=== PATIENT | female | born 1965 | race Caucasian/White ===

== ENCOUNTER → 2016-07-30 | Outpatient (CLI) | payer BC, OTHER ==
--- NOTE | 2016-07-31 11:18 | ECHOF ---
Referral Reason:Z01.818 pre chemo breast ca MEASUREMENTS -------- HEIGHT: 165.1 cm WEIGHT: 77.1 kg BP: IVSd: 1.3 cm (0.6 - 1.1) LVIDd: 3.3 cm (3.9 - 5.3) LVPWd: 1.2 cm (0.6 - 1.1) IVSs: 1.9 cm LVIDs: 2.2 cm LVPWs: 1.6 cm Ao Diam: 2.8 cm (2.0 - 3.7) AV Cusp: 2.3 cm (1.5 - 2.6) LA Diam: 2.9 cm (2.7 - 3.8) MV EXCURSION: 13.059 mm (> 18.000) MV EF SLOPE: 63 mm/s (70 - 150) EPSS: 0.3 cm MV E Waylon: 0.58 m/s MV DecT: 118 ms MV A Waylon: 0.65 m/s MV E/A Ratio: 0.88 RAP: 5.00 mmHg RVSP: 16.89 mmHg FINDINGS -------- Sinus rhythm. This was a technically good study. There is mild concentric left ventricular hypertrophy. Overall left ventricular systolic function is normal with, an EF between 55 - 60 %. The right ventricle is normal in size and function. The left atrium is normal in size. The right atrium is normal in size. The aortic valve is trileaflet, and appears structurally normal. No aortic stenosis or regurgitation. There is trace mitral regurgitation. Trace tricuspid regurgitation present. The right ventricular systolic pressure, as measured by Doppler, is 16.89mmHg. Pulmonic valve appears structurally normal. The aortic root, ascending aorta and aortic arch are normal. The pericardium is normal. CONCLUSIONS -------- 1. Sinus rhythm. 2. Trace tricuspid regurgitation present. 3. The right ventricular systolic pressure, as measured by Doppler, is 16.89mmHg. 4. Pulmonic valve appears structurally normal. 5. The aortic root, ascending aorta and aortic arch are normal. 6. The pericardium is normal. 7. This was a technically good study. 8. There is mild concentric left ventricular hypertrophy. 9. Overall left ventricular systolic function is normal with, an EF between 55 - 60 %. 10. The right ventricle is normal in size and function. 11. The left atrium is normal in size. 12. The right atrium is normal in size. 13. The aortic valve is trileaflet, and appears structurally normal. No aortic stenosis or regurgitation. 14. There is trace mitral regurgitation. TRANSFER TABLE OPERATOR HELPER: Bere Carmona RDCS
== END | disposition home or self-care (01) ==
LOC: RADECHMAIN 13:46
PROVIDERS: ATTEND Internal Medicine Hematology & Oncology
DX: Z01.818 Encounter for other preprocedural examination (principal); I08.1 Rheumatic disorders of both mitral and tricuspid valves
CPT/HCPCS: 93306

== ENCOUNTER 2016-07-31 11:57 | Day surgery (SDC) | payer BC, OTHER ==
[2016-07-26 11:49] VITALS: BMI 28.3
[~2016-07-31 11:57] MED LIST: DEXAMETHASONE SOD PHOSPHATE 10 MG/ML 1 ML VIAL IV ONE; HEPARIN SODIUM,PORCINE 5,000 UNIT/ML 1 ML VIAL SQ ONE; HYDROmorphone 1 MG/ML 1 ML SYRINGE IVP PRN; LACTATED RINGERS 1,000 ML IV SCH; ceFAZolin 2 GM in SODIUM CHLORIDE 0.9% 100 ML IVPB ONE
[2016-07-31] MEDS ORDERED: LIDOCAINE 1% 20 ML VIAL (10MG/ML) FOR IV START INTRADERMA ONE (13:38)
[2016-07-31] MEDS ORDERED: ONDANSETRON 4 MG/2 ML VIAL IVP ONE (13:39)
[2016-07-31 13:44] LABS: Glucose,Whole Blood 101 mg/dL (75-99)
[2016-07-31] MEDS ORDERED: MIDAZOLAM 2 MG/2 ML VIAL IVP ONE (13:46)
[2016-07-31] MEDS ORDERED: IOHEXOL 180 MG/ML 1 ML ML MISCELLANE ONE (13:53)
[2016-07-31] MEDS ORDERED: HEPARIN SODIUM,PORCINE 100 UNIT/ML 5 ML VIAL IV ONE (13:53)
[2016-07-31] MEDS ORDERED: BUPIVACAIN-EPI 0.25%-1:200,000 30 ML VIAL SQ ONE ×2 (13:53)
--- NOTE | 2016-07-31 15:04 | P.GSHP ---
History of Present Illness H&P Date: 07/31/16 Chief Complaint: History of breast cancer This is a 50-year-old female who presents today for Port-A-Cath insertion. Patient was recently diagnosed breast cancer. Patient will be undergoing chemotherapy. Past Medical History Past Medical History: Cancer, Diabetes Mellitus, GERD/Reflux, Hyperlipidemia, Hypertension, Sleep Apnea/CPAP/BIPAP Additional Past Medical History / Comment(s): RIGHT BREAST CANCER, CPAP History of Any Multi-Drug Resistant Organisms: None Reported Past Surgical History: Breast Surgery, Cholecystectomy Additional Past Surgical History / Comment(s): R breast Bx X2, RIGHT MASTECTOMY , Past Anesthesia/Blood Transfusion Reactions: Postoperative Nausea & Vomiting ( PONV) Past Psychological History: Anxiety Smoking Status: Never smoker Past Alcohol Use History: Rare Past Drug Use History: None Reported - Past Family History Sister(s) Family Medical History: Cancer Mother Family Medical History: Coronary Artery Disease (CAD), Deep Vein Thrombosis (DVT ) Father Family Medical History: CVA/TIA Medications and Allergies Home Medications Medication Instructions Recorded Confirmed Type ALPRAZolam [Xanax] 0.5 mg PO BID PRN 07/27/15 07/26/16 History Atorvastatin [Lipitor] 40 mg PO HS 07/27/15 07/26/16 History Omeprazole [PriLOSEC] 40 mg PO HS 07/27/15 07/26/16 History Ramipril 2.5 mg PO HS 07/27/15 07/26/16 History metFORMIN HCL ER [Glucophage Xr] 1,000 mg PO BID 07/04/16 07/26/16 History Allergies Allergy/AdvReac Type Severity Reaction Status Date / Time No Known Allergies Allergy Verified 07/31/16 12:46 Surgical - Exam Vital Signs Temp Pulse Resp BP Pulse Ox 97.5 F L 93 16 145/71 100 07/31/16 12:48 07/31/16 12:48 07/31/16 12:48 07/31/16 12:48 07/31/16 12:48 - General well developed, no distress - Eyes PERRL - ENT normal pinna - Neck no masses - Respiratory normal expansion - Cardiovascular Rhythm: regular - Abdomen Abdomen: soft, non tender Results - Labs Abnormal Lab Results - Last 24 Hours (Table) 07/31/16 Range/Units 13:33 POC Glucose (mg/dL) 101 H (75-99) mg/dL Assessment and Plan Plan: History of breast cancer. We'll perform Port-A-Cath insertion.
[2016-07-31] MEDS ORDERED: LIDOCAINE 1% INJ 10MG/ML (20 ML MDV) ONE (15:06)
[2016-07-31] MEDS ORDERED: fentaNYL (PF) 50 MCG/ML 2 ML AMP ONE (15:06)
[2016-07-31] MEDS ORDERED: MIDAZOLAM 2 MG/2 ML VIAL ONE (15:06)
[2016-07-31] MEDS ORDERED: KETAMINE 10 MG/ML 20 ML VIAL ONE (15:06)
[2016-07-31] MEDS ORDERED: PROPOFOL 10 MG/ML 20 ML VIAL IV ONE (15:06)
[2016-07-31 16:00] VITALS: TEMP 97.9
--- NOTE | 2016-07-31 16:09 | FL ---
Fluoroscopy INDICATION: Port-A-Cath insertion 2 seconds fluoroscopy time was provided for procedure. One fluoroscopic spot images presented.
--- NOTE | 2016-07-31 16:10 | P.OP ---
Date of Procedure: 07/31/16 Preoperative Diagnosis: Breast cancer Postoperative Diagnosis: Breast cancer Procedure(s) Performed: Insertion of left subclavian Port-A-Cath Anesthesia: MAC Surgeon: Basilio Llamas Estimated Blood Loss (ml): 5 Pathology: none sent Condition: stable Disposition: PACU Description of Procedure: PROCEDURE: The patient was placed on the operating table in the supine position. She received MAC anesthetic. The left chest was prepped and draped in the usual sterile fashion. The skin underneath the right clavicle was anesthetized with 1% Xylocaine and using Seldinger technique, the right subclavian vein was cannulized. The wire was placed through the needle and positioned under fluoroscopy. Next, the needle was removed and the port site was anesthetized with 1% Xylocaine. Skin was incised with #15 blade and port pocket was made using blunt and sharp dissection. Following this the catheter was attached to the sport and the port was flushed. The port was positioned into the pocket site and was secured with 3-0 Vicryl suture. The catheter was then brought out through the wire site and then the dilator sheath was placed over the wire and the dilator and the wire were removed. The catheter was placed through the sheath and the sheath was removed. The port was flushed with hep-lock solution. Skin was closed with interrupted 3-0 Vicryl sutures. Steri-Strips were applied. The patient tolerated the procedure well. The patient was sent to recovery room for chest x-ray after the procedure.
--- NOTE | 2016-07-31 16:27 | XR ---
EXAMINATION TYPE: XR chest 1V DATE OF EXAM: 07/31/2016 4:20 PM COMPARISON: NONE INDICATION: Post Port-A-Cath insertion TECHNIQUE: Single frontal view of the chest is obtained. FINDINGS: The heart size is normal. The pulmonary vasculature is normal. The lungs are clear. Underexpanded appears to be present on the right. A left-sided central venous catheter is in place th e tip in the superior vena cava region. A kink near the port access point cannot be excluded. IMPRESSION: 1. A kink near the port access is not excluded. Tip of the catheter is in the region of the superior vena cava.
[2016-07-31 16:31] VITALS: BP 139/70; PULSE 88; RESP 16
== END 2016-07-31 17:10 | disposition home or self-care (01) ==
LOC: OR 11:57
PROVIDERS: ATTEND Surgery
DX: Z45.2 Encounter for adjustment and management of vascular access device (principal); C50.911 Malignant neoplasm of unspecified site of right female breast; K21.9 Gastro-esophageal reflux disease without esophagitis; E11.9 Type 2 diabetes mellitus without complications; E78.5 Hyperlipidemia, unspecified; F41.9 Anxiety disorder, unspecified; G47.30 Sleep apnea, unspecified; Z99.89 Dependence on other enabling machines and devices; Z79.84 Long term (current) use of oral hypoglycemic drugs; Z79.899 Other long term (current) drug therapy; Z90.11 Acquired absence of right breast and nipple
CPT/HCPCS: 36561; 81025; 77001; 71010; C1788; J2250; J1644; J1642; J1100; Q9965; J0690; J2405; J2001; J3010; J2704; 99152; 99153

== ENCOUNTER 2016-08-09 10:30 | Day surgery (SDC) | payer BC, OTHER ==
[2016-08-09 11:10] VITALS: RESP 18; TEMP 98
[2016-08-09] MEDS ORDERED: IODIXANOL 320 MG/ML 100 ML IV ONE (13:11)
[2016-08-09 13:47] VITALS: BP 141/72; PULSE 95
[2016-08-09 15:59] LABS: Glucose,Whole Blood 140 mg/dL (75-99)
--- NOTE | 2016-08-09 16:52 | IR ---
Port-A-Cath check HISTORY: Unable to aspirate Port-A-Cath, malfunctioning Port-A-Cath Evaluation of the Port-A-Cath under real-time fluoroscopy was undertaken Gentle hand injection of contrast material approximately 5 cc of Visipaque 320 was undertaken under r eal-time fluoroscopy. Normal filling of the port is present, there is no leak from the catheter, catheter tip is adjacent t o the lateral wall of the superior vena cava. Aspiration is slow from the catheter. Catheter was flushed with heparin solution. No immediate complication. Patient remained in stable co ndition. IMPRESSION: Catheter placement as described. Distal tip abuts the superior vena cava wall.
== END 2016-08-09 13:15 | disposition home or self-care (01) ==
LOC: CATHCVL 10:30
PROVIDERS: ATTEND Radiology Diagnostic Radiology
DX: T82.514A Breakdown (mechanical) of infusion catheter, initial encounter (principal); Y71.1 Therapeutic (nonsurgical) and rehabilitative cardiovascular devices associated with adverse incidents; Y92.9 Unspecified place or not applicable; C77.3 Secondary and unspecified malignant neoplasm of axilla and upper limb lymph nodes; C50.411 Malignant neoplasm of upper-outer quadrant of right female breast; Z79.84 Long term (current) use of oral hypoglycemic drugs; Z79.899 Other long term (current) drug therapy; Z17.0 Estrogen receptor positive status [ER+]
CPT/HCPCS: 36598; 81025; Q9967

== ENCOUNTER → 2017-03-12 | Outpatient (CLI) | payer BC, OTHER ==
--- NOTE | 2017-03-13 07:48 | XR ---
EXAMINATION TYPE: XR lumbar spine 2 or 3V DATE OF EXAM: 03/12/2017 CLINICAL HISTORY: pain TECHNIQUE: Three views of the lumbar spine are submitted. COMPARISON: None. FINDINGS: There are 5 lumbar type vertebral bodies identified. The lumbar spine shows satisfactory alignment w ithout evidence of acute fracture or dislocation. Vertebral body heights are within normal limits. Mild degenerative disc space narrowing and spondylosis. The overlying soft tissue appears unremarkab le. IMPRESSION: No acute fracture or dislocation is seen in the lumbar spine. ICD 10 NO FRACTURE, INITIAL EVALUATION
--- NOTE | 2017-03-13 07:50 | XR ---
EXAMINATION TYPE: XR Hip Bilateral and AP pelvis DATE OF EXAM: 03/12/2017 CLINICAL HISTORY: Pelvic and right hip pain. TECHNIQUE: A single AP view of the pelvis is obtained. Two views of the bilateral hips are obtained. COMPARISON: None. FINDINGS: There is no acute fracture/dislocation evident in the pelvis. The hip and sacroiliac joints appear s ymmetric and unremarkable. The overlying soft tissue appears unremarkable.Two views of bilateral hip show no acute fracture or dislocation. The overlying soft tissue is unremarkable. IMPRESSION: There is no acute fracture or dislocation in the pelvis or bilateral hips
--- NOTE | 2017-03-13 08:19 | US ---
EXAMINATION TYPE: US venous doppler duplex LE RT DATE OF EXAM: 03/12/2017 5:36 PM COMPARISON: NONE CLINICAL HISTORY: M79.661 Pain in right lower leg. Right leg cramping SIDE PERFORMED: Right TECHNIQUE: The lower extremity deep venous system is examined utilizing real time linear array sonog morris with graded compression, doppler sonography and color-flow sonography. VESSELS IMAGED: External Iliac Vein (EIV) Common Femoral Vein Deep Femoral Vein Greater Saphenous Vein * Femoral Vein Popliteal Vein Small Saphenous Vein * Proximal Calf Veins (* superficial vessels) Grayscale, color doppler, spectral doppler imaging performed of the deep veins of the lower extremity . There is normal flow, compressibility, vascular waveforms. Right Leg: Negative for DVT IMPRESSION: No evidence of DVT right leg
== END | disposition home or self-care (01) ==
LOC: RADUSMAIN 16:55
PROVIDERS: ATTEND Internal Medicine Hematology & Oncology
DX: M79.661 Pain in right lower leg (principal); C50.419 Malignant neoplasm of upper-outer quadrant of unspecified female breast; Z17.0 Estrogen receptor positive status [ER+]
CPT/HCPCS: 72100; 73521

== ENCOUNTER 2017-06-04 06:51 | Day surgery (SDC) | payer BC, OTHER ==
[2017-05-30 15:10] VITALS: BMI 26.6
[~2017-06-04 06:51] MED LIST changes: +HYDROmorphone 0.5 MG/0.5 ML SYRINGE IVP PRN; -HYDROmorphone 1 MG/ML 1 ML SYRINGE IVP PRN; +LIDOCAINE 1% 20 ML VIAL (10MG/ML) FOR IV START INTRADERMA PRN; +MIDAZOLAM 2 MG/2 ML VIAL IV PRN; +ONDANSETRON 4 MG/2 ML VIAL IVP ONE; +SCOPOLAMINE 1.5MG/72HR PATCH TRANSDERM ONE; -ceFAZolin 2 GM in SODIUM CHLORIDE 0.9% 100 ML IVPB ONE; +ceFAZolin IN SWFI 2 GM/20 ML SYRINGE IVP ONE
[2017-06-04 07:37] LABS: Glucose,Whole Blood 141 mg/dL (75-99)
--- NOTE | 2017-06-04 08:07 | P.GSHP ---
History of Present Illness H&P Date: 06/04/17 Chief Complaint: history of right breast cancer This is a 51-year-old female who has a previous history of right breast cancer. Patient presents today for left breast simple mastectomy with immediate reconstruction with tissue implant acute coordinator by Dr. Villasenor. Past Medical History Past Medical History: Cancer, Diabetes Mellitus, GERD/Reflux, Hyperlipidemia, Hypertension, Sleep Apnea/CPAP/BIPAP Additional Past Medical History / Comment(s): RIGHT BREAST CANCER, LAST CHEMO , LAST RADIATION 01/29/17, CPAP. History of Any Multi-Drug Resistant Organisms: None Reported Past Surgical History: Breast Surgery, Cholecystectomy Additional Past Surgical History / Comment(s): R breast Bx X2, RIGHT MASTECTOMY , port-a-cath insertion. Past Anesthesia/Blood Transfusion Reactions: Postoperative Nausea & Vomiting ( PONV) Past Psychological History: Anxiety Smoking Status: Never smoker Past Alcohol Use History: Rare Past Drug Use History: None Reported - Past Family History Sister(s) Family Medical History: Cancer Mother Family Medical History: Coronary Artery Disease (CAD), Deep Vein Thrombosis (DVT ) Father Family Medical History: CVA/TIA Medications and Allergies Home Medications Medication Instructions Recorded Confirmed Type ALPRAZolam [Xanax] 0.5 mg PO BID PRN 07/27/15 06/04/17 History Atorvastatin [Lipitor] 40 mg PO HS 07/27/15 06/04/17 History Omeprazole [PriLOSEC] 20 mg PO HS 07/27/15 06/04/17 History Ramipril 2.5 mg PO HS 07/27/15 06/04/17 History metFORMIN HCL ER [Glucophage Xr] 1,000 mg PO BID 07/04/16 06/04/17 History Tamoxifen Citrate 20 mg PO HS 05/30/17 06/04/17 History Allergies Allergy/AdvReac Type Severity Reaction Status Date / Time No Known Allergies Allergy Verified 05/30/17 14:47 Surgical - Exam Vital Signs Temp Pulse Resp BP Pulse Ox 97.6 F 85 16 140/92 99 06/04/17 07:16 06/04/17 07:16 06/04/17 07:16 06/04/17 07:16 06/04/17 07:16 - General well developed, no distress - Eyes PERRL - ENT normal pinna - Neck no masses - Respiratory normal expansion - Cardiovascular Rhythm: regular - Abdomen Abdomen: soft, non tender High riding right chest wall acute coordinator. Left breast has no evidence of any masses. There is no cervical or axillary lymphadenopathy. Results - Labs Abnormal Lab Results - Last 24 Hours (Table) 06/04/17 Range/Units 07:34 POC Glucose (mg/dL) 141 H (75-99) mg/dL Assessment and Plan Assessment: 3 of right breast cancer. We'll perform left breast simple mastectomy with immediate reconstruction
[2017-06-04] MEDS ORDERED: KETAMINE 10 MG/ML 20 ML VIAL ONE (08:28)
[2017-06-04] MEDS ORDERED: PROPOFOL 10 MG/ML 20 ML VIAL IV ONE (08:28)
[2017-06-04] MEDS ORDERED: fentaNYL (PF) 50 MCG/ML 2 ML AMP ONE (08:28)
[2017-06-04] MEDS ORDERED: MIDAZOLAM 2 MG/2 ML VIAL ONE (08:28)
[2017-06-04] MEDS ORDERED: ePHEDrine SULFATE/0.9% NACL/PF 50 MG/5 ML SYRINGE IV ONE (08:28)
[2017-06-04] MEDS ORDERED: HYDROmorphone (PF) 1 MG/ML ONE (08:28)
[2017-06-04] MEDS ORDERED: SUCCINYLCHOLINE CHLORIDE 100 MG/5 ML SYR IV ONE (08:28)
[2017-06-04] MEDS ORDERED: LIDOCAINE 1% INJ 10MG/ML (20 ML MDV) ONE (08:28)
[2017-06-04] MEDS ORDERED: PHENYLEPHRINE-0.9% NACL SYG 1 MG/10 ML SYRINGE ONE (08:28)
--- NOTE | 2017-06-04 10:21 | P.OP ---
Date of Procedure: 06/04/17 Preoperative Diagnosis: History of right breast cancer Postoperative Diagnosis: History of right breast cancer Procedure(s) Performed: left simple mastectomy Anesthesia: CHERELLE Surgeon: Basilio Llamas Estimated Blood Loss (ml): 30 Pathology: other (Left breast) Condition: stable Disposition: PACU Description of Procedure: Patient's placed on the operative table in supine position. She had been previously marked by Dr. Villasenor in the preoperative hold area. The patient received general anesthesia. Her breast was prepped and draped usual sterile fashion. A circular incision was made around the nipple complex. And then using left cautery and the Harmonic scissors the simple mastectomy was performed. The mastectomy flaps were elevated to the level of the clavicle early. The sternum medially, the inframammary place inferiorly and the axilla laterally. The breast was then removed from the chest wall using the Harmonic scissors. Several small perforating vessels were divided. The specimen was sent to pathology. Specimen was labeled with a long suture superiorly and the short suture medially. The wound was packed. There is no bleeding seen. Dr. Villasenor then completed the breast reconstruction. A skin incision made at the port site and then using blunt and sharp dissection with cautery the Port-A-Cath was withdrawn from the left chest wall. The skin was closed interrupted 3-0 Monocryl suture. Dermabond was applied. Please see hospital for Dr. Villasenor's description of this procedure.
[2017-06-04] MEDS ORDERED: LACTATED RINGERS 1,000 ML IV ONE (10:31)
[2017-06-04 11:23] VITALS: RESP 16; TEMP 97
[2017-06-04 11:43] LABS: Glucose,Whole Blood 181 mg/dL (75-99)
[2017-06-04] MEDS: HYDROmorphone 1 MG/ML 1 ML SYRINGE IVP PRN ×4 (11:47→12:19)
[2017-06-04] MEDS ORDERED: HYDROcodone/APAP 7.5-325MG 1 EACH TAB PO ONE (12:58)
[2017-06-04 14:19] VITALS: PULSE 90
[2017-06-04 14:20] VITALS: BP 138/72
--- NOTE | 2017-06-04 17:18 | OP ---
OPERATIVE REPORT DATE OF SURGERY: June 04, 2017. SURGEON: Ward Calloway M.D. PREOPERATIVE DIAGNOSES: 1. Acquired loss left breast. 2. Status post left mastectomy. POSTOPERATIVE DIAGNOSES: 1. Acquired loss left breast. 2. Status post left mastectomy. 3. Personal history of breast cancer. OPERATIVE PROCEDURES: 1. Immediate reconstruction of left breast following mastectomy with insertion of tissue puzzle assembler. Subsequent outpatient expansion. 2. Implantation of reconstructive graft, flex HD, 220 square cm, for left breast reconstruction. OPERATIVE INDICATION: The patient is a 51-year-old female, who is undergoing treatment for invasive right breast cancer with neoadjuvant therapy right mastectomy with immediate postoperative reconstruction and subsequent radiation therapy. She is returning to surgery today. She has elected to proceed with left simple mastectomy for prophylactic treatment of breast cancer. She was referred to my care for reconstructive purposes by general surgeon, Dr. Llamas who will perform left simple mastectomy. Following this procedure tissue puzzle assembler style reconstruction initiated. Patient understands potential risks and complications related to surgery including hematoma seroma wound infection, wound healing problems and asymmetry among others. She has requested I perform the surgery. OPERATIVE PROCEDURE SUMMARY: The patient was seen in the presurgical area. Markings were made. She was transported to the operating room, where she was placed in supine position. General endotracheal anesthesia was established. She was prepped and draped in usual fashion. Dr. Llamas proceeded with left simple mastectomy. At the completion of the procedure I entered the room. Again the patient is under general tracheal anesthesia in the supine position. Sponge and needle counts from prior procedure were correct. I initiated left breast reconstruction. The pectoralis major muscle was identified where it joined the chest wall laterally. Loose areolar connective tissue divided with cautery allowing entry into the potential plane between the pectoralis major minor muscles which was bluntly developed followed by use of cauterization to divide medial attachment fibers of the pectoralis major muscle to the rims without sternal attachments and all inferior attachments released. Additional muscle groups were required for coverage of the puzzle assembler. Inferior medial rectus abdominal muscle fascia inferiorly laterally external abdominal oblique muscle fascia and laterally serratus anterior muscle fascia were now all elevated with cauterization through this incision was sufficient size submuscular region was completed. Dissection stopped. Irrigation was performed. Hemostasis was excellent. The cavity was sized. A tissue puzzle assembler now opened on the field. After changing gloves the tissue expanders from the [employer] style reference number [id number] , serial number [id number]. Device was only handled by the surgeon. All air was extracted. 50 mL 0.9 normal saline instilled into the reconstructive plane. The muscle flap tissue was attenuated in an area with significant amount and could not be approximated directly over the puzzle assembler without significant tension. Therefore the flex HD which had been used on the patient's prior reconstructions was opened on the field. The flex HD measured 11 x 20 square cm was opened on the field. Irrigated. The flex HD was inserted in the reconstructive plane, deep to the muscle flap tissue but superficial to the puzzle assembler. It was only in the inferior sling technique and inset the muscle flap tissue using interrupted short running 3-0 Vicryl sutures. Complete coverage was obtained. Additional saline was now added to the puzzle assembler until appropriate tension was distributed between the muscle flap and flex HD. Final volume of the puzzle assembler was 300 mL. A 19 round Robert channel drain was inserted into the surgical field. Placed over the muscle flap and deep to the skin flaps. Drains brought out through a separate stab incision. The left anterior lateral chest wall and suture placed with 2-0 Prolene. The drain was connected to close bulb suction and also sutured in place with 2-0 Prolene. The mastectomy wound site was now closed. Circumareolar approach had been used. Therefore a deep dermal circumareolar pursestring technique was used with 2-0 Prolene followed by final approximation of the dermis using interrupted 4-0 Monocryl. The patient's Mediport on the left side had been removed by Dr. Llamas. This opening was now closed approximating the deep dermis using inverted interrupted 4-0 Monocryl and the closure of the skin with subcuticular 4-0 Monocryl followed by placement of Steri-Strips and a bandage was then placed over the mastectomy site using 4x4s ABD pad secured with paper tape. The patient's drain was patent. The patient was then awakened from her anesthetic, extubated, and transferred to the recovery room in good condition and stable vital signs. There were no complications. ESTIMATED BLOOD LOSS: Was 100 mL. MMODL / IJN: [id number] /
== END 2017-06-04 14:41 | disposition home or self-care (01) ==
LOC: OR 06:51
PROVIDERS: ATTEND Surgery
DX: C50.911 Malignant neoplasm of unspecified site of right female breast (principal); E11.9 Type 2 diabetes mellitus without complications; K21.9 Gastro-esophageal reflux disease without esophagitis; E78.5 Hyperlipidemia, unspecified; I10 Essential (primary) hypertension; G47.30 Sleep apnea, unspecified; Z99.89 Dependence on other enabling machines and devices; Z82.49 Family history of ischemic heart disease and other diseases of the circulatory system; Z82.3 Family history of stroke; Z79.84 Long term (current) use of oral hypoglycemic drugs; Z79.810 Long term (current) use of selective estrogen receptor modulators (SERMs); Z79.899 Other long term (current) drug therapy
CPT/HCPCS: 19303; 19357; 36589; J2250; J1644; J1100; J0690; J2405; J2001; J3010; J1170; J2370; J0330; J2704; 81025; 88307

== ENCOUNTER → 2017-09-09 | Outpatient (CLI) | payer BC ==
[2017-09-09 18:53] LABS: Blood Urea Nitrogen 10 mg/dL (7-17)
--- NOTE | 2017-09-10 06:57 | CT ---
EXAMINATION TYPE: CT brain wo/w con DATE OF EXAM: 09/09/2017 COMPARISON: NONE HISTORY: headaches on and off for 4 months. History of breast cancer. CT DLP: 2108.4 mGycm Automated exposure control for dose reduction was used. CONTRAST: CT scan of the head is performed without and with IV Contrast, patient injected with 100 mL of Omnipa que 300. FINDINGS: Noncontrast images show no acute intracranial hemorrhage or midline shift. Marie-white matter differen tiation is maintained. The ventricles and sulci are within normal limits in size. Post contrast imag es show no suspicious enhancing intraparenchymal mass. The globes are intact and the visualized sinus es are clear. IMPRESSION: No significant finding is seen to account for patient's symptoms.
== END | disposition home or self-care (01) ==
LOC: RADCTMAIN 18:10
PROVIDERS: ATTEND Internal Medicine Hematology & Oncology
DX: R51 Headache (principal); C50.419 Malignant neoplasm of upper-outer quadrant of unspecified female breast
CPT/HCPCS: 82565; 84520; 70470; 36415; Q9967

== ENCOUNTER 2017-10-28 10:31 | Day surgery (SDC) | payer BC ==
[2017-10-21 09:24] VITALS: BMI 26.6
[~2017-10-28 10:31] MED LIST changes: -HEPARIN SODIUM,PORCINE 5,000 UNIT/ML 1 ML VIAL SQ ONE; -HYDROmorphone 0.5 MG/0.5 ML SYRINGE IVP PRN; -LIDOCAINE 1% 20 ML VIAL (10MG/ML) FOR IV START INTRADERMA PRN; +MORPHINE SULFATE 4MG/4ML SYRG IV PRN; -SCOPOLAMINE 1.5MG/72HR PATCH TRANSDERM ONE
[2017-10-28] MEDS ORDERED: LIDOCAINE 1% 20 ML VIAL (10MG/ML) FOR IV START INTRADERMA ONE (11:35)
[2017-10-28 11:53] LABS: Glucose,Whole Blood 110 mg/dL (75-99)
[2017-10-28] MEDS ORDERED: PROPOFOL 10 MG/ML 20 ML VIAL IV ONE (12:17)
[2017-10-28] MEDS ORDERED: MORPHINE SULFATE 10 MG/ML SYRINGE ONE (12:17)
[2017-10-28] MEDS ORDERED: ROCURONIUM BROMIDE 10 MG/ML 10 ML VIAL IV ONE (12:17)
[2017-10-28] MEDS ORDERED: GLYCOPYRROLATE 0.2 MG/ML 2 ML VIAL ONE (12:17)
[2017-10-28] MEDS ORDERED: fentaNYL (PF) 50 MCG/ML 2 ML AMP ONE (12:17)
[2017-10-28] MEDS ORDERED: LIDOCAINE 1% INJ 10MG/ML (20 ML MDV) ONE (12:17)
[2017-10-28] MEDS ORDERED: SUCCINYLCHOLINE CHLORIDE 100 MG/5 ML SYR IV ONE (12:17)
[2017-10-28] MEDS ORDERED: NEOSTIGMINE 1 MG/ML 10 ML VIAL ONE (12:17)
[2017-10-28] MEDS ORDERED: MIDAZOLAM 2 MG/2 ML VIAL ONE (12:17)
[2017-10-28] MEDS ORDERED: LACTATED RINGERS 1,000 ML IV ONE (14:47)
[2017-10-28 15:08] LABS: Glucose,Whole Blood 140 mg/dL (75-99)
[2017-10-28 15:16] VITALS: TEMP 96.8
[2017-10-28 15:18] VITALS: RESP 16
[2017-10-28] MEDS: fentaNYL (PF) 50 MCG/ML 2 ML AMP IV ONE ×2 (15:24→15:44)
[2017-10-28] MEDS ORDERED: HYDROcodone/APAP 7.5-325MG 1 EACH TAB PO ONE (16:09)
[2017-10-28 17:00] VITALS: BP 139/69; PULSE 72
--- NOTE | 2017-10-28 22:22 | OP ---
OPERATIVE REPORT DATE OF SURGERY: October 28, 2017 PREOPERATIVE DIAGNOSES:: 1. Acquired loss, right and left breast. 2. Personal history of breast cancer. 3. Acquired loss of right breast inframammary fold. 4. Acquired deformities of the right left reconstructed breast. POSTOPERATIVE DIAGNOSES:: 1. Acquired loss of right left breast. 2. Personal history of breast cancer. 3. Acquired loss, right inframammary fold. 4. Acquired deformity of right and left reconstructed breast. OPERATION:: 1. Replace left breast tissue child welfare assistant with silicone breast implant for left breast reconstruction. 2. Revision, left reconstructed breast. 3. Replace right breast tissue child welfare assistant with silicone breast implant for right breast reconstruction. 4. Revision, right reconstructed breast. 5. Reconstruction of right breast inframammary fold via local advancement flap, 66.5 cm2. 6. Implantation of reconstructive graft, FlexHD for right breast reconstruction, 220 cm2. ESTIMATED BLOOD LOSS:: SPECIMEN TAKEN:: SURGEON: Dr. Ward Calloway. OPERATIVE INDICATIONS: The patient is a 52-year-old female who has undergone initially right mastectomy and then later delayed left mastectomy. She did require radiation treatment in addition to chemotherapy. The radiation was required for the right side at the time of her 1st mastectomy and then 2nd mastectomy, the patient elected to proceed with reconstruction via tissue child welfare assistant technique and the separate procedures were accomplished. She completed expansion process which some expansion was required to complete after finishing radiation therapy and she did progress well with the expansion despite the radiation treatments, although there had been significant skin envelope changes involving the right breast which was radiated. The patient's right inframammary fold was effaced and the lower pole is significantly diminished compared to the patient's left side. There are significant contour irregularities, more pronounced on the right than left, but are present on both sides. The patient is here today for her 2nd stage of reconstruction of the breast with removal of expanders, placement of the implants, revision of the breast, reconstruction of the right inframammary fold and likely placement of a reconstructive graft. She understands additional surgery may be required and also that there are potential risks and complications related to surgery including, but not limited to wound infections, wound healing problems, seroma, hematoma, asymmetrical result. She has requested I perform the surgery. NARRATIVE:: The patient is seen, presurgical area markings made, procedure reviewed. All questions answered. She was transported to the operating room, where she was placed in supine position following induction general endotracheal anesthesia, the patient was prepped and draped in usual fashion. The procedure initiated on the patient's left side. Transverse diagram was drawn over the mastectomy scar. Incision made, dividing skin in full-thickness fashion with a 10 blade scalpel followed by the use of cauterization to divide subcutaneous tissue. Skin and subcutaneous tissue flaps were then elevated off the muscle flap tissue. Extensive dissection was required to release contour with irregularities caused by the prior procedures and healing processes. Once this was completed, a transverse incision was made through the muscle flap tissue in the lower 1/3 of the reconstructive site, exposing the child welfare assistant. The child welfare assistant was removed intact. The expansion cavity appeared normal. Some serous fluid, no exudates, no granulation tissue. A complete capsulotomy incision was made where the capsule joined the chest wall and then multiple cruciate incisions made through the capsular structure, releasing the tightness of the structure, but not through the muscle. The site was irrigated, hemostasis maintained with cauterization. This was packed open with moistened laparotomy pads. Attention was turned toward the right side. Again, transverse diagram for incisions drawn, encompassing the patient's prior mastectomy scar site. Incision made with a 10 blade scalpel, dividing skin in full-thickness fashion followed by use of cauterization throughout subcutaneous tissue and then cautery was used to elevate skin and subcutaneous tissue flaps off the muscle flap tissue. Extensive dissection was required for this to release contour irregularities and abnormalities caused by her prior surgeries and expansion. With this completed, incision was then made through the muscle flap tissue, exposing the child welfare assistant. This incision was offset from the skin incision over the lower 1/3 of the child welfare assistant. The child welfare assistant was exposed and removed intact. The expansion cavity appeared normal. A small amount of serous fluid, no granulation tissue, no exudates. The expansion capsule on the right side had significant hypertrophic characteristics and required division. First, a complete capsulotomy incision was made where the capsule joined the chest wall and then multiple cruciate incisions through the capsule. Hemostasis was maintained with cautery with this portion of procedure. This released significant tightness of the capsule. The patient's right inframammary fold was completely lost due to the surgery expansion and radiation treatments. Skin and subcutaneous tissue flap was now elevated through the lower capsulotomy incision. The flap was large, measuring 19 x 3.5 cm2. It included skin and subcutaneous tissue. Once the flap was elevated, the cautery was advanced in a cephalad fashion and secured to the chest wall rib periosteal tissue in several places and scar tissue and others using several discrete interrupted 0 Vicryl sutures. The crease was in the equal level to the patient's left side. The left crease had a small amount of effacement, was overall intact and did not require this maneuver. With the right crease reconstructed at this point, the field was re-irrigated. Hemostasis was excellent. Temporary implant sizers were opened on the field. Ultimately, sizers placed were different on each side. On the right side, the 650 mL sizer appeared optimal. The left side, as there was a greater amount of tissue and no radiation performed, slightly smaller sizer, 600 mL appeared to be optimal. These were evaluated with the patient in seated up position and the incisions temporarily closed with alirio. She was returned to supine position, temporary staple closure was removed. Both temporary implant sizers removed both cavities irrigated. Hemostasis was excellent. The right-sided implant was now opened. This implant measured 615 mL, was from the [employer], high profile implant, reference #[id number], serial #[id number]. Gloves had been changed prior to opening the device and the device was only handled by surgeon after irrigating with saline. It was inserted in reconstructive cavity. It was not possible to approximate muscle flap tissue over the implant. FlexHD reconstructive graft was opened on the field, measuring 11 x 20 cm2. The graft was rinsed several times with room temperature saline. The graft was then oriented under direct vision and with the implant temporarily removed, the graft was sutured just above the inframammary fold reconstruction site using several interrupted 3-0 Vicryl. The implant was replaced in the cavity, the FlexHD advanced over the lower pole of the implant and placed deep to the muscle flap tissue and the muscle flap tissue advanced over the FlexHD. The muscle flap tissue and FlexHD were then inset to each other using interrupted 3-0 Vicryl, providing complete coverage to the implant. Irrigation was performed. Hemostasis remained excellent. The deep dermal layer of the skin incision was now closed using inverted interrupted 4-0 Monocryl. Attention was turned toward the left side now. Again gloves were changed and the left-sided breast implant opened on the field. This implant measured 600 mL in volume, was from the [employer] and also high-profile, reference #[id number], serial #[id number]. The device was only handled by the surgeon after obtaining new gloves and the device was irrigated with saline. The implant was inserted in the reconstructive cavity. No reconstructive graft was required on this side. The muscle flap tissue was advanced over the implant and closed using interrupted 3-0 Vicryl sutures and the deep dermal layer of the skin incision closed using inverted interrupted 4-0 Monocryl. On both sides, the final skin closure was completed using a running 5-0 Prolene. Surgical larson now closed with saline, dried and postoperative bandages placed using Kerlix squares secured with 3M Medipore tape followed by placement of size 3 mammary support. The patient was then awakened from her anesthetic, extubated and transferred to recovery room. The estimated blood loss of the procedure was 100 mL and there were no complications. MMODL / IJN: [id number] /
== END 2017-10-28 17:31 | disposition home or self-care (01) ==
LOC: OR 10:31
PROVIDERS: ATTEND Plastic Surgery
DX: Z90.13 Acquired absence of bilateral breasts and nipples (principal); Z90.10 Acquired absence of unspecified breast and nipple; Z85.3 Personal history of malignant neoplasm of breast; N65.0 Deformity of reconstructed breast; Z92.3 Personal history of irradiation; Z92.21 Personal history of antineoplastic chemotherapy; I10 Essential (primary) hypertension; E11.9 Type 2 diabetes mellitus without complications; Z79.84 Long term (current) use of oral hypoglycemic drugs; E78.5 Hyperlipidemia, unspecified; G47.33 Obstructive sleep apnea (adult) (pediatric); F41.9 Anxiety disorder, unspecified; K21.9 Gastro-esophageal reflux disease without esophagitis; Z79.810 Long term (current) use of selective estrogen receptor modulators (SERMs); Z79.899 Other long term (current) drug therapy
CPT/HCPCS: 19342; 15777; 14301; 14302; J1100; J2405; J3010; J0690; J2270; 88305

== ENCOUNTER 2018-03-24 06:37 | Day surgery (SDC) | payer BC ==
[2018-03-19 14:15] VITALS: BMI 26.2
[~2018-03-24 06:37] MED LIST changes: -DEXAMETHASONE SOD PHOSPHATE 10 MG/ML 1 ML VIAL IV ONE; +LIDOCAINE 1% 20 ML VIAL (10MG/ML) FOR IV START INTRADERMA PRN; -MIDAZOLAM 2 MG/2 ML VIAL IV PRN; -MORPHINE SULFATE 4MG/4ML SYRG IV PRN; -ONDANSETRON 4 MG/2 ML VIAL IVP ONE; -ceFAZolin IN SWFI 2 GM/20 ML SYRINGE IVP ONE
[2018-03-24] MEDS ORDERED: LACTATED RINGERS 1,000 ML IV ONE (06:56)
[2018-03-24 07:08] VITALS: RESP 16; TEMP 98
[2018-03-24 07:16] LABS: Glucose,Whole Blood 123 mg/dL (75-99)
[2018-03-24] MEDS ORDERED: fentaNYL (PF) 50 MCG/ML 2 ML AMP ONE (07:56)
[2018-03-24] MEDS ORDERED: PROPOFOL 10 MG/ML 20 ML VIAL IV ONE (07:56)
[2018-03-24] MEDS ORDERED: LIDOCAINE 1% INJ 10MG/ML (20 ML MDV) ONE (07:56)
--- NOTE | 2018-03-24 08:29 | P.PCN ---
Date of Procedure: 03/24/18 Procedure(s) Performed: Procedure: Esophagogastroduodenoscopy and biopsy. Preoperative diagnosis: Abdominal pain and nausea and chronic reflux symptoms. Postoperative diagnosis: 1. Small sliding hiatal hernia with no obvious or complicated reflux disease. 2. Mild antral gastritis. 3. Multiple biopsies obtained from the duodenum, antrum and esophagus. Preparation and sedation: Was provided by anesthesia. Brief clinical history: The patient is a 52-year-old female with multiple medical problems including diabetes mellitus, hypertension, hyperlipidemia and obstructive sleep apnea with history of breast cancer that was treated with surgery as well as chemotherapy and radiation. The patient had bilateral mastectomy. She has chronic reflux symptoms for more than 20 years and is maintained on medical therapy for that. She has been experiencing epigastric pain and stomach upset as well as nausea with no significant vomiting for the last month or so. No significant weight loss or any evidence of bleeding. This evaluation is to assess for complicated reflux disease, peptic ulcer disease or other pathology. Procedure: With the patient on her left lateral decubitus position and after informed consent and adequate sedation, I passed the Olympus-GIF 160 video upper endoscope through the cricopharyngeus down the esophagus. GE junction was around 36 cm from the incisors and there was a small sliding hiatal hernia but no obvious esophagitis or complicated reflux disease. The endoscope was then passed into the stomach which was insufflated with air and inspected in detail including the retroflex view in the cardia. There was some minimal mottling and erythema in the antrum but no ulcers or erosions. Pyloric channel , duodenal bulb, post bulbar area and descending duodenum appeared within normal limits. Because of her symptoms, I obtained biopsies from the duodenum, antrum and esophagus then the endoscope was withdrawn. The patient tolerated the procedure well. Plan: The patient was reassured. Will await biopsy results and make further plans based on her course and biopsy results.
[2018-03-24 08:43] VITALS: BP 131/81; PULSE 83
== END 2018-03-24 09:12 | disposition home or self-care (01) ==
LOC: ORWHC2ENDO 06:37
DX: K21.0 Gastro-esophageal reflux disease with esophagitis (principal); K29.50 Unspecified chronic gastritis without bleeding; K44.9 Diaphragmatic hernia without obstruction or gangrene; E78.5 Hyperlipidemia, unspecified; G47.33 Obstructive sleep apnea (adult) (pediatric); F41.9 Anxiety disorder, unspecified; E11.9 Type 2 diabetes mellitus without complications; I10 Essential (primary) hypertension; Z90.13 Acquired absence of bilateral breasts and nipples; Z85.3 Personal history of malignant neoplasm of breast; Z92.21 Personal history of antineoplastic chemotherapy; Z92.3 Personal history of irradiation; Z79.84 Long term (current) use of oral hypoglycemic drugs; Z79.810 Long term (current) use of selective estrogen receptor modulators (SERMs); Z79.899 Other long term (current) drug therapy
CPT/HCPCS: 43239; J2001; J3010; J2704; 88305

== ENCOUNTER → 2018-06-22 | Outpatient (CLI) | payer BC ==
[2018-06-22 10:23] LABS: Blood Urea Nitrogen 9 mg/dL (7-17)
--- NOTE | 2018-06-22 11:24 | CT ---
EXAMINATION TYPE: CT brain wo/w con DATE OF EXAM: 06/22/2018 COMPARISON: 09/09/2017 HISTORY: Breast cancer CT DLP: 1922.00 mGycm Automated exposure control for dose reduction was used. CONTRAST: CT scan of the head is performed with IV Contrast, patient injected with 100 ml mL of Isovue 300. Pre and postcontrast CT brain performed. FINDINGS: There is no abnormal enhancing mass or midline shift identified. The ventricles and sulci are within normal limits in size. The globes are intact and the visualized sinuses are clear. Within the deep white matter superior right parietal lobe area of low attenuation which is nonspecifi c. No enhancement. IMPRESSION: 1. There is an area of enhancement along the anterior interhemispheric fissure inferior frontal lobe. This is nonspecific potentially could represent a meningioma. Other etiologies not excluded given th e patient's history of malignancy. Measures 1.1 x 0.6 cm. Recommend follow-up MRI/MRA with contrast. 2. Areas of low attenuation right parietal white matter are nonspecific and be seen with hypertension , remote microvascular ischemia, or demyelination.
--- NOTE | 2018-06-22 14:15 | NM ---
EXAMINATION TYPE: NM bone scan whole body DATE OF EXAM: 06/22/2018 COMPARISON: NONE HISTORY: Breast cancer Delayed whole-body scanning was performed following the injection of 24.7 mCi Tc 99m MDP. Images acq uired 3.5 hours post injection. FINDINGS: Abnormal uptake involving the knees is most typical of arthritic change. Abnormal uptake involving th e feet suggestive of arthritic change. No suspicious uptake within the vertebral column. No suspicious uptake involving the rib cage. IMPRESSION: No diagnostic evidence of metastases.
== END | disposition home or self-care (01) ==
LOC: RADNMMAIN 09:44
PROVIDERS: ATTEND Internal Medicine Hematology & Oncology
DX: C50.419 Malignant neoplasm of upper-outer quadrant of unspecified female breast (principal)
CPT/HCPCS: 82565; 84520; 70470; 36415; 78306; A9503; Q9967

== ENCOUNTER → 2018-07-24 | Outpatient (CLI) | payer BC ==
--- NOTE | 2018-07-25 13:49 | MR ---
EXAMINATION TYPE: MR brain wo/w con DATE OF EXAM: 07/24/2018 COMPARISON: CT brain 06/22/2018 HISTORY: Abnormal CT, hx breast ca 2016 CONTRAST: Performed utilizing 7.5 mL intravenous Gadavist gadolinium contrast. TECHNIQUE: Multiplanar, multiecho imaging on a 3.0 Solange magnet is performed through the brain. Stud y is performed within 24 hours of arrival to the hospital. The craniovertebral junction is normal. The pituitary is normal. Diffusion-weighted imaging is performed. No abnormal hyperintensity is present to suggest an acute i ntracranial infarct or acute ischemic change. There is an isointense area along the inferior medial right interhemispheric fissure. This appears to be extra-axial and has prominent enhancement. There appears to be a dural tail anteriorly. No edema within the adjacent brain is evident. This area measures 0.6 cm transverse x 1.4 cm AP x 2.0 cm crani ocaudal dimension on the postcontrast images. Series 603 image 15, series 604 image 7. Imaging favors meningioma within the differential. Short-term monitoring with contrast CT is recommended, metastati c changes are considered less likely but not excluded. Ventricles and sulci are appropriate for the patient age. No additional suspicious areas of abnormal enhancement are evident. There appear to be normal vascula r flow voids within the visualized intracranial cerebral vasculature. IMPRESSIONS: 1. Probable meningioma along the inferior right medial frontal interhemispheric fissure. Monitoring i s recommended. Metastatic disease is considered less likely. 2. Remaining portions of the intracranial pre and postcontrast MRI appear normal.
== END | disposition home or self-care (01) ==
LOC: RADMRIMAIN 14:10
PROVIDERS: ATTEND Internal Medicine Hematology & Oncology
DX: R94.02 Abnormal brain scan (principal)
CPT/HCPCS: 70553; A9585

== ENCOUNTER → 2018-11-30 | Outpatient (CLI) | payer BC ==
--- NOTE | 2018-11-30 17:46 | BD ---
EXAMINATION TYPE: Axial Bone Density DATE OF EXAM: 11/30/2018 COMPARISON: NONE CLINICAL HISTORY: 53-year-old female age-related osteoporosis Height: 64 IN Weight: 150 LBS RISK FACTORS HISTORY OF: Active: YES Diet low in dairy products/other sources of calcium: YES Postmenopausal woman: AGE 51 Take estrogen and/or progesterone medications: NONE NOW How long: CONTROL 10 YEARS MEDICATIONS: Additional Medications: CALCIUM, VIT D, ANASTRAZOLE,BLOOD PRESSURE MEDS, CHOLESTEROL MEDS, DIABETES MEDS, Additional History: BREAST CANCER WITH CHEMO AND RADIATION EXAM MEASUREMENTS: Bone mineral densitometry was performed using the [employer] System. Bone mineral density as measured about the Lumbar spine is: ----- L1-L4(G/cm2): 1.219 T Score Values are as follows: ----- L2: -0.2 ----- L3: 0.6 ----- L4: 0.8 ----- L1-L4: 0.3 Bone mineral density BASELINE Bone mineral density about the R hip (g/cm2): 0.856 Bone mineral density about the L hip (g/cm2): 0.886 T Score values are as follows: -----R Neck: -1.3 -----L Neck: -1.1 -----R Total: -1.2 -----L Total: -1.0 Bone mineral density BASELINE IMPRESSION: Osteopenia (T Score between -2.5 and -1). There is slightly increased risk of fracture and the patient may be considered for treatment. Re-Screen 2-5 years. NOTE: T-SCORE=SD OF THE YOUNG ADULT MEAN.
== END | disposition home or self-care (01) ==
LOC: RADBDWWP 16:04
PROVIDERS: ATTEND Internal Medicine Hematology & Oncology
DX: M85.88 Other specified disorders of bone density and structure, other site (principal)
CPT/HCPCS: 77080

== ENCOUNTER → 2020-01-10 | Outpatient (CLI) | payer BC ==
--- NOTE | 2020-01-11 07:59 | XR ---
EXAMINATION TYPE: XR lumbar spine 2 or 3V DATE OF EXAM: 01/10/2020 CLINICAL HISTORY: pain TECHNIQUE: Three views of the lumbar spine are submitted. COMPARISON: None. FINDINGS: There are 5 lumbar type vertebral bodies identified. The lumbar spine shows satisfactory alignment w ithout evidence of acute fracture or dislocation. Vertebral body heights are within normal limits. Mild scattered disc space narrowing and spondylosis. The overlying soft tissue appears unremarkable. IMPRESSION: No acute fracture or dislocation is seen in the lumbar spine. ICD 10 NO FRACTURE, INITIAL EVALUATION
--- NOTE | 2020-01-11 07:59 | XR ---
EXAMINATION TYPE: XR Hip Complete LT DATE OF EXAM: 01/10/2020 CLINICAL HISTORY: pain TECHNIQUE: AP and frogleg views of the left hip are obtained. COMPARISON: None. FINDINGS: There is no acute fracture/dislocation evident. The joint space appears within normal li mits. The overlying soft tissue appears unremarkable. IMPRESSION: 1. There is no acute fracture or dislocation.ICD 10 NO FRACTURE, INITIAL EVALUATION
== END | disposition home or self-care (01) ==
LOC: RADXRMAIN 16:04
PROVIDERS: ATTEND Internal Medicine Hematology & Oncology
DX: C50.419 Malignant neoplasm of upper-outer quadrant of unspecified female breast (principal); Z17.0 Estrogen receptor positive status [ER+]
CPT/HCPCS: 72100; 73502

== ENCOUNTER → 2020-12-19 | Outpatient (CLI) | payer BC ==
--- NOTE | 2020-12-20 08:02 | BD ---
EXAMINATION TYPE: Axial Bone Density DATE OF EXAM: 12/19/2020 COMPARISON: DEXA bone scan November 30, 2018 CLINICAL HISTORY: Postmenopausal female, history of breast cancer Height: 65 Weight: 143.7 FRAX RISK QUESTIONS: Alcohol (3 or more units per day): no Family History (Parent hip fracture): no Glucocorticoids (More than 3mos): no (Ex: prednisone, prednisolone, methylprednisolone, dexamethasone, and hydrocortisone). History of Fracture in Adulthood: no Secondary Osteoporosis: 1. Type 1 Diabetes: no 2. Hyperthyroidism: no 3. Menopause before 45: no 4. Malnutrition: no 5. Chronic liver disease: no Rheumatoid Arthritis: no Current Tobacco Use: no RISK FACTORS HISTORY OF: Surgery to Spine/Hip(right/left)/Wrist (right/left): no Family History of Osteoporosis: no Active: sometimes Diet low in dairy products/other sources of calcium: yes Postmenopausal woman: age 51 -chemo induced Lost more than 2 inches in height since high school: no MEDICATIONS: metformin, anastrazole, blood pressure meds, cholesterol meds Additional History: EXAM MEASUREMENTS: Bone mineral densitometry was performed using the [employer] System. Bone mineral density as measured about the Lumbar spine is: ----- L1-L4(G/cm2): 1.115 T Score Values are as follows: ----- L2: -1.6 ----- L3: -0.3 ----- L4: 0.1 ----- L1-L4: -0.5 Bone mineral density has: decreased -9.1 % since study of: 11.30.2018 Bone mineral density about the R hip (g/cm2): 0.792 Bone mineral density about the L hip (g/cm2): 0.799 T Score values are as follows: -----R Neck: -1.8 -----L Neck: -1.7 -----R Total: -1.5 -----L Total: -1.6 Bone mineral density has: decreased -6.7 % since study of: 11.30.2018 IMPRESSION: Osteopenia (T Score between -2.5 and -1) remains present. Bone density is decreased or diminished fro m prior. There remains slightly increased risk of fracture and the patient may be considered for treatment. Re-Screen 2-5 years. NOTE: T-SCORE=SD OF THE YOUNG ADULT MEAN.
== END | disposition home or self-care (01) ==
LOC: RADBDWWP 16:00
PROVIDERS: ATTEND Internal Medicine Hematology & Oncology
DX: Z13.820 Encounter for screening for osteoporosis (principal); M85.89 Other specified disorders of bone density and structure, multiple sites; Z78.0 Asymptomatic menopausal state; Z85.3 Personal history of malignant neoplasm of breast
CPT/HCPCS: 77080

== ENCOUNTER → 2023-02-17 | Outpatient (CLI) | payer BC ==
--- NOTE | 2023-02-17 15:10 | USB ---
Reason for Exam: Clinical finding. Patient History: Menarche at age 10. First Full-Term at age 26. Breast cancer, age 50. Hormonal Contraceptives for 10 years from age 17 until age 29. 05/31/2016, Malignant Core Biopsy on the right side. 05/14/2016, Malignant Core Biopsy on the right side. 05/14/2016, Malignant Core Biopsy on the right side. 04/05/2011, Benign Core Biopsy on the right side. Technique: Method: Targeted. Prior Study Comparison: 04/20/2016 Bilateral Screening Mammogram, [facility]. 04/26/2016 Right Diagnostic Mammogram, [facility]. 05/14/2016 Right Diagnostic Mammogram, [facility]. Findings: The upper inner quadrant of the right breast and the axilla of the right breast were scanned. Imaged: Ultrasound imaging of: Area of concern, retroareolar region and axilla. There is a elongated area at 2:00 9 cm in the nipple in the area of palpable abnormality. This is predominantly hypoechoic with well prescribed margins. This is within 3 mm of the breast implant. Overall Assessment: Suspicious, BI-RAD 4 Management: Ultrasound Core Biopsy of the right breast. Elongated lesion in the area of palpable abnormality which could represent postsurgical change versus other etiologies such as fat-containing lesion versus other etiologies. Consider further evaluation with MRI versus short-term follow-up ultrasound in 3 months. Given its close proximity to the breast implant is doubtful image guided biopsy could be performed safely. A clinical breast exam by your physician is recommended on an annual basis and results should be correlated with mammographic findings. This exam should not preclude additional follow-up of suspicious palpable abnormalities. Results were given to the patient verbally at the time of exam. Electronically signed and approved by: Nawaf Garcia DO
== END | disposition home or self-care (01) ==
LOC: RADUSWWP 14:01
PROVIDERS: ATTEND Family Medicine
DX: N63.10 Unspecified lump in the right breast, unspecified quadrant (principal); Z85.3 Personal history of malignant neoplasm of breast